=== PATIENT | male | born 1960 | race Caucasian/White ===

== ENCOUNTER 2020-05-10 19:55 | Emergency (ER) | payer BC ==
[~2020-05-10] VITALS: Ht 170.2 cm; Wt 72.3 kg
[~2020-05-10 19:55] MED LIST: CLARITIN D TAB1 TAB PO; VITE
[2020-05-10 20:02] VITALS: BP 126/88; TEMP 98.7
[2020-05-10 21:00] LABS: BASO # 0.1 (0.0-0.2); BASO % 1.3 % (0.0-2.0); EOS # 0.6 (0.0-0.7); EOS % 8.9 % (0-4.0); GRAN # 4.3 (1.4-6.5); GRAN % 60.1 % (42.2-75.2); HEMATOCRIT 47.3 % (42.0-52.0); HEMOGLOBIN 15.9 g/dl (13.5-18.0); LYMPH # 1.5 (1.2-3.4); LYMPH % 20.6 % (20.0-51.0); MEAN CELL VOLUME 92 fl (80.0-100.0); MEAN CORPUSCULAR HEMOGLOBIN 31 pg (27.0-31.0); MEAN CORPUSCULAR HGB CONC 34 g/dl (33.0-37.0); MEAN PLATELET VOLUME 9.5 fl (7.4-10.4); MONO # 0.6 (0.1-0.6); MONO % 8.8 % (1.7-9.3); PLATELET COUNT 194 K/mm3 (130-400); RED BLOOD COUNT 5.14 M/mm3 (4.20-5.60); REDCELL DISTRIBUTION WIDTH-CV 12.2 % (11.5-14.5)
[2020-05-10 21:03] VITALS: PULSE 79
[2020-05-10 21:07] LABS: INR 1.1 (0.8-3.0); PROTHROMBIN TIME 12.1 SECONDS (9.7-12.8)
[2020-05-10 21:11] LABS: CALCIUM 8.8 mg/dL (8.4-10.2); CREATININE, serum 0.73 (0.66-1.25)
== END 2020-05-10 21:05 | disposition home or self-care (01) ==
LOC: COL.ER 19:55
PROVIDERS: Emergency Medicine
DX: I80.01 Phlebitis and thrombophlebitis of superficial vessels of right lower extremity (principal)

== ENCOUNTER → 2020-05-11 | Outpatient (CLI) | payer BC | LOC: COL.VAS 08:58 | DX: M79.604 Pain in right leg (principal) ==

== ENCOUNTER → 2023-01-10 | Outpatient (CLI) | payer BC | LOC: COL.RAD 07:15 | DX: M50.321 Other cervical disc degeneration at C4-C5 level (principal); M50.21 Other cervical disc displacement, high cervical region; M50.322 Other cervical disc degeneration at C5-C6 level; M50.323 Other cervical disc degeneration at C6-C7 level; M48.02 Spinal stenosis, cervical region; M47.812 Spondylosis without myelopathy or radiculopathy, cervical region; G56.03 Carpal tunnel syndrome, bilateral upper limbs ==